=== PATIENT | female | born 1985 | race Caucasian/White ===

== ENCOUNTER 2017-05-01 08:53 | Emergency (ER) | payer BC, OTHER ==
--- NOTE | 2017-05-01 09:46 | EDM.PDOC ---
ED HPI GENERAL MEDICAL PROBLEM - General Chief Complaint: Gastrointestinal Problem Stated Complaint: STOMACH PAIN/SWELLING AND LEG SWELLING Time Seen by Provider: 05/01/17 09:06 Source of Information: Reports: Patient, Family (), RN Notes Reviewed History Limitations: Reports: No Limitations - History of Present Illness INITIAL COMMENTS - FREE TEXT/NARRATIVE: The patient states that she has had abdominal bloating and discomfort since November , following a cholecystectomy, and that it has been worse over the past 2-3 weeks. She has also been experiencing bilateral lower extremity edema for the past 2-3 weeks. She states that she has had bilateral flank pain for the past month or so. She has nausea if she doesn't eat, but no recent vomiting, constipation, or diarrhea. No dysuria, but she does feel that she has to urinate frequently, sometimes. No recent fever. No recent dyspnea or chest pain. The patient is visibly jaundiced, which the patient states she was unaware of, and the patient's states developed only today. The patient states that she quit drinking about one week ago, of 2-3 vodka and cranberry drinks per night. She denies the use of any drugs, with the exception of marijuana as a kid. The patient's PCP is Tori Almanza, from [place], but the patient states that she has not seen her, because she is stubborn. She states that the only reason that she is here today is because her and mother nagged her. Abdomen Pain Score (Numeric/FACES): 4 - Related Data Allergies Allergy/AdvReac Type Severity Reaction Status Date / Time No Known Allergies Allergy Verified 05/01/17 09:09 Home Meds: Home Meds . [No Known Home Meds] 05/01/17 [History] Past Medical History Dermatologic History: Reports: Psoriasis (untreated) - Past Surgical History GI Surgical History: Reports: Bariatric Procedure (Gastric bypass, 2013), Cholecystectomy (November 2016) Female Surgical History: Reports: Tubal Ligation (2010) Social & Family History - Tobacco Use Smoking Status *Q: Current Every Day Smoker Years of Tobacco use: 2 Packs/Tins Daily: 1 - Caffeine Use Caffeine Use: Reports: None - Alcohol Use Alcohol Use History: Yes Days Per Week of Alcohol Use: 7 Number of Drinks Per Day: 3 Total Drinks Per Week: 21 Date/Time of Last Drink Comment: Last = 04/23/2017 Alcohol Use Frequency: Daily - Recreational Drug Use Recreational Drug Use: Yes Drug Use in Last 12 Months: No Recreational Drug Type: Reports: Marijuana/Hashish (last as a teenager) - Living Situation & Occupation Living situation: Reports: , with Spouse, with Family (mother, carmelo, 4 kids) Occupation: Unemployed ED ROS GENERAL - Review of Systems Review Of Systems: ROS reveals no pertinent complaints other than HPI. Constitutional: Reports: No Symptoms HEENT: Reports: No Symptoms Respiratory: Reports: No Symptoms Cardiovascular: Reports: No Symptoms Endocrine: Reports: No Symptoms GI/Abdominal: Reports: No Symptoms : Reports: No Symptoms Musculoskeletal: Reports: No Symptoms Skin: Reports: No Symptoms Neurological: Reports: No Symptoms Psychiatric: Reports: No Symptoms Hematologic/Lymphatic: Reports: No Symptoms Immunologic: Reports: No Symptoms ED EXAM, GENERAL - Physical Exam Exam: See Below Exam Limited By: No Limitations General Appearance: Alert, WD/WN, No Apparent Distress Eye Exam: Bilateral Eye: Other (Scleral icterus) Ears: Normal External Exam, Hearing Grossly Normal Nose: Normal Inspection, No Blood Throat/Mouth: Normal Inspection, Normal Lips, Normal Teeth, Normal Gums, Normal Oropharynx, Normal Voice, No Airway Compromise Head: Atraumatic, Normocephalic Neck: Normal Inspection, Full Range of Motion Respiratory/Chest: No Respiratory Distress, Lungs Clear, Normal Breath Sounds, No Accessory Muscle Use Cardiovascular: Normal Peripheral Pulses, No Gallop, No JVD, No Murmur, No Rub, Tachycardia (regular) Peripheral Pulses: 3+: Radial (L), Radial (R) GI/Abdominal: Normal Bowel Sounds, Soft, No Organomegaly, No Abnormal Bruit, No Mass, Distended, Tender (mild, LUQ only Nontender elsewhere.), Other (No pitting edema of the abdominal wall) (Female) Exam: Deferred Rectal (Female) Exam: Deferred Back Exam: Normal Inspection, Full Range of Motion, NT Extremities: Normal Inspection, Normal Range of Motion, Normal Capillary Refill , Other (2+ bilateral pretibial pitting edema) Neurological: Alert, Oriented, Normal Cognition, No Motor/Sensory Deficits Psychiatric: Normal Affect Skin Exam: Warm, Dry, Intact, No Rash, Jaundice Course - Vital Signs Last Recorded V/S: Last Vital Signs Temp 36.3 C 05/01/17 09:05 Pulse 125 H 05/01/17 09:05 Resp 16 05/01/17 09:05 BP 133/62 05/01/17 09:05 Pulse Ox 97 05/01/17 09:05 - Orders/Labs/Meds Orders: Active Orders 24 hr Category Date Time Status Abdomen Pelvis w Cont [CT] Stat Exams 05/01/17 09:31 Taken Ang Chest [CT] Stat Exams 05/01/17 10:57 Taken Chest 2V [CR] Stat Exams 05/01/17 09:31 Taken CULTURE URINE [RM] Stat Lab 05/01/17 09:55 Received HEPATITIS PANEL, ACUTE [REF] Stat Lab 05/01/17 09:45 Received Sodium Chloride 0.9% [Normal Saline] 1,000 ml Med 05/01/17 11:00 Active IV ASDIRECTED Sodium Chloride 0.9% [Normal Saline] 100 ml Med 05/01/17 11:00 Active IV ASDIRECTED Sodium Chloride 0.9% [Saline Flush] Med 05/01/17 09:54 Active 10 ml FLUSH ONETIME PRN Medication Orders Sodium Chloride (Normal Saline) 1,000 mls @ 100 mls/hr IV ASDIRECTED STEFAN Last Admin: 05/01/17 12:18 Dose: 100 mls/hr Sodium Chloride (Normal Saline) 100 mls @ 80 mls/hr IV ASDIRECTED STEFAN Last Admin: 05/01/17 11:18 Dose: 80 mls/hr Sodium Chloride (Saline Flush) 10 ml FLUSH ONETIME PRN PRN Reason: IV FLUSH Last Admin: 05/01/17 11:19 Dose: 10 ml Labs: Laboratory Tests 05/01/17 05/01/17 05/01/17 Range/Units 09:45 09:45 09:45 WBC 14.41 H (3.98-10.04) K/mm3 RBC 3.08 L (3.98-5.22) M/mm3 Hgb 10.9 L (11.2-15.7) gm/L Hct 31.7 L (34.1-44.9) % MCV 102.9 H (79.4-94.8) fl MCH 35.4 H (25.6-32.2) pg MCHC 34.4 (32.2-35.5) g/dl RDW Std Deviation 64.3 H (36.4-46.3) fL Plt Count 81 L (182-369) K/mm3 MPV 10.9 (9.4-12.3) fl Neutrophils % (Manual) 79 H (40-60) % Band Neutrophils % 4 (0-10) % Lymphocytes % (Manual) 13 L (20-40) % Atypical Lymphs % 0 % Monocytes % (Manual) 4 (2-10) % Eosinophils % (Manual) 0 L (0.7-5.8) % Basophils % (Manual) 0 L (0.1-1.2) Platelet Estimate See note Anisocytosis 1+ slight Macrocytosis 1+ slight RBC Morph Comment Not Reportable PT 20.3 H (8.0-13.0) SECONDS INR 1.79 APTT 44 H (22-36) SECONDS D-Dimer, Quantitative 5.89 H (0.19-0.59) mg/L Sodium 131 L (136-145) mEq/L Potassium 3.7 (3.5-5.1) mEq/L Chloride 95 L (98-107) mEq/L Carbon Dioxide 24 (21-32) mEq/L Anion Gap 15.7 H (5-15) BUN 4 L (7-18) mg/dL Creatinine 0.6 (0.55-1.02) mg/dL Est Cr Clr Drug Dosing 115.16 mL/min Estimated GFR (MDRD) > 60 (>60) mL/min BUN/Creatinine Ratio 6.7 L (14-18) Glucose 79 (74-106) mg/dL Calcium 8.6 (8.5-10.1) mg/dL Magnesium 1.6 L (1.8-2.4) mg/dl Total Bilirubin 11.4 H (0.2-1.0) mg/dL Direct Bilirubin (0.0-0.2) mg/dl GGT 590 H (5-55) U/L AST 110 H (15-37) U/L ALT 15 (14-59) U/L Alkaline Phosphatase 250 H (46-116) U/L Lactate Dehydrogenase 223 (81-234) U/L NT-Pro-B Natriuret Pep 345 H (0-125) pg/mL Total Protein 6.7 (6.4-8.2) g/dl Albumin 2.1 L (3.4-5.0) g/dl Globulin 4.6 gm/dL Albumin/Globulin Ratio 0.5 L (1-2) Lipase 226 (73-393) U/L Urine Color (Yellow) Urine Appearance (Clear) Urine pH (5.0-8.0) Ur Specific [place] (1.005-1.030) Urine Protein (Negative) Urine Glucose (UA) (Negative) Urine Ketones (Negative) Urine Occult Blood (Negative) Urine Nitrite (Negative) Urine Bilirubin (Negative) Urine Urobilinogen (0.2-1.0) Ur Leukocyte Esterase (Negative) Urine RBC (0-5) /hpf Urine WBC (0-5) /hpf Ur Epithelial Cells (0-5) /hpf Urine Bacteria (FEW) /hpf Urine Mucus (FEW) /hpf Urine HCG, Qual (NEGATIVE) Urine Opiates Screen (NEGATIVE) Ur Buprenorphine Scrn (NEGATIVE) Ur Oxycodone Screen (NEGATIVE) Urine Methadone Screen (NEGATIVE) Ur Propoxyphene Screen (NEGATIVE) Ur Barbiturates Screen (NEGATIVE) Ur Tricyclics Screen (NEGATIVE) Ur Phencyclidine Scrn (NEGATIVE) Ur Amphetamine Screen (NEGATIVE) U Methamphetamines Scrn (NEGATIVE) U Benzodiazepines Scrn (NEGATIVE) U Cocaine Metab Screen (NEGATIVE) U Marijuana (THC) Screen (NEGATIVE) Hepatitis C Antibody (NEGATIVE) 05/01/17 05/01/17 05/01/17 Range/Units 09:45 09:45 09:55 WBC (3.98-10.04) K/mm3 RBC (3.98-5.22) M/mm3 Hgb (11.2-15.7) gm/L Hct (34.1-44.9) % MCV (79.4-94.8) fl MCH (25.6-32.2) pg MCHC (32.2-35.5) g/dl RDW Std Deviation (36.4-46.3) fL Plt Count (182-369) K/mm3 MPV (9.4-12.3) fl Neutrophils % (Manual) (40-60) % Band Neutrophils % (0-10) % Lymphocytes % (Manual) (20-40) % Atypical Lymphs % % Monocytes % (Manual) (2-10) % Eosinophils % (Manual) (0.7-5.8) % Basophils % (Manual) (0.1-1.2) Platelet Estimate Anisocytosis Macrocytosis RBC Morph Comment PT (8.0-13.0) SECONDS INR APTT (22-36) SECONDS D-Dimer, Quantitative (0.19-0.59) mg/L Sodium (136-145) mEq/L Potassium (3.5-5.1) mEq/L Chloride (98-107) mEq/L Carbon Dioxide (21-32) mEq/L Anion Gap (5-15) BUN (7-18) mg/dL Creatinine (0.55-1.02) mg/dL Est Cr Clr Drug Dosing mL/min Estimated GFR (MDRD) (>60) mL/min BUN/Creatinine Ratio (14-18) Glucose (74-106) mg/dL Calcium (8.5-10.1) mg/dL Magnesium (1.8-2.4) mg/dl Total Bilirubin (0.2-1.0) mg/dL Direct Bilirubin 8.50 H (0.0-0.2) mg/dl GGT (5-55) U/L AST (15-37) U/L ALT (14-59) U/L Alkaline Phosphatase (46-116) U/L Lactate Dehydrogenase (81-234) U/L NT-Pro-B Natriuret Pep (0-125) pg/mL Total Protein (6.4-8.2) g/dl Albumin (3.4-5.0) g/dl Globulin gm/dL Albumin/Globulin Ratio (1-2) Lipase (73-393) U/L Urine Color Yellow (Yellow) Urine Appearance Clear (Clear) Urine pH 6.5 (5.0-8.0) Ur Specific [place] 1.010 (1.005-1.030) Urine Protein Negative (Negative) Urine Glucose (UA) Negative (Negative) Urine Ketones Negative (Negative) Urine Occult Blood 2+ H (Negative) Urine Nitrite Negative (Negative) Urine Bilirubin 3+ H (Negative) Urine Urobilinogen 1.0 (0.2-1.0) Ur Leukocyte Esterase Negative (Negative) Urine RBC 5-10 H (0-5) /hpf Urine WBC 5-10 H (0-5) /hpf Ur Epithelial Cells 0-5 (0-5) /hpf Urine Bacteria Few (FEW) /hpf Urine Mucus Few (FEW) /hpf Urine HCG, Qual (NEGATIVE) Urine Opiates Screen (NEGATIVE) Ur Buprenorphine Scrn (NEGATIVE) Ur Oxycodone Screen (NEGATIVE) Urine Methadone Screen (NEGATIVE) Ur Propoxyphene Screen (NEGATIVE) Ur Barbiturates Screen (NEGATIVE) Ur Tricyclics Screen (NEGATIVE) Ur Phencyclidine Scrn (NEGATIVE) Ur Amphetamine Screen (NEGATIVE) U Methamphetamines Scrn (NEGATIVE) U Benzodiazepines Scrn (NEGATIVE) U Cocaine Metab Screen (NEGATIVE) U Marijuana (THC) Screen (NEGATIVE) Hepatitis C Antibody Negative (NEGATIVE) 05/01/17 05/01/17 Range/Units 09:55 09:55 WBC (3.98-10.04) K/mm3 RBC (3.98-5.22) M/mm3 Hgb (11.2-15.7) gm/L Hct (34.1-44.9) % MCV (79.4-94.8) fl MCH (25.6-32.2) pg MCHC (32.2-35.5) g/dl RDW Std Deviation (36.4-46.3) fL Plt Count (182-369) K/mm3 MPV (9.4-12.3) fl Neutrophils % (Manual) (40-60) % Band Neutrophils % (0-10) % Lymphocytes % (Manual) (20-40) % Atypical Lymphs % % Monocytes % (Manual) (2-10) % Eosinophils % (Manual) (0.7-5.8) % Basophils % (Manual) (0.1-1.2) Platelet Estimate Anisocytosis Macrocytosis RBC Morph Comment PT (8.0-13.0) SECONDS INR APTT (22-36) SECONDS D-Dimer, Quantitative (0.19-0.59) mg/L Sodium (136-145) mEq/L Potassium (3.5-5.1) mEq/L Chloride (98-107) mEq/L Carbon Dioxide (21-32) mEq/L Anion Gap (5-15) BUN (7-18) mg/dL Creatinine (0.55-1.02) mg/dL Est Cr Clr Drug Dosing mL/min Estimated GFR (MDRD) (>60) mL/min BUN/Creatinine Ratio (14-18) Glucose (74-106) mg/dL Calcium (8.5-10.1) mg/dL Magnesium (1.8-2.4) mg/dl Total Bilirubin (0.2-1.0) mg/dL Direct Bilirubin (0.0-0.2) mg/dl GGT (5-55) U/L AST (15-37) U/L ALT (14-59) U/L Alkaline Phosphatase (46-116) U/L Lactate Dehydrogenase (81-234) U/L NT-Pro-B Natriuret Pep (0-125) pg/mL Total Protein (6.4-8.2) g/dl Albumin (3.4-5.0) g/dl Globulin gm/dL Albumin/Globulin Ratio (1-2) Lipase (73-393) U/L Urine Color (Yellow) Urine Appearance (Clear) Urine pH (5.0-8.0) Ur Specific [place] (1.005-1.030) Urine Protein (Negative) Urine Glucose (UA) (Negative) Urine Ketones (Negative) Urine Occult Blood (Negative) Urine Nitrite (Negative) Urine Bilirubin (Negative) Urine Urobilinogen (0.2-1.0) Ur Leukocyte Esterase (Negative) Urine RBC (0-5) /hpf Urine WBC (0-5) /hpf Ur Epithelial Cells (0-5) /hpf Urine Bacteria (FEW) /hpf Urine Mucus (FEW) /hpf Urine HCG, Qual Negative (NEGATIVE) Urine Opiates Screen Negative (NEGATIVE) Ur Buprenorphine Scrn Negative (NEGATIVE) Ur Oxycodone Screen Negative (NEGATIVE) Urine Methadone Screen Negative (NEGATIVE) Ur Propoxyphene Screen Negative (NEGATIVE) Ur Barbiturates Screen Negative (NEGATIVE) Ur Tricyclics Screen Negative (NEGATIVE) Ur Phencyclidine Scrn Negative (NEGATIVE) Ur Amphetamine Screen Negative (NEGATIVE) U Methamphetamines Scrn Negative (NEGATIVE) U Benzodiazepines Scrn Negative (NEGATIVE) U Cocaine Metab Screen Negative (NEGATIVE) U Marijuana (THC) Screen Negative (NEGATIVE) Hepatitis C Antibody (NEGATIVE) Meds: Medications Generic Name Dose Route Start Last Admin Trade Name Freq PRN Reason Stop Dose Admin Sodium Chloride 1,000 mls @ 100 mls/hr 05/01/17 11:00 05/01/17 12:18 Normal Saline IV 100 mls/hr ASDIRECTED STEFAN Administration Sodium Chloride 100 mls @ 80 mls/hr 05/01/17 11:00 05/01/17 11:18 Normal Saline IV 80 mls/hr ASDIRECTED STEFAN Administration Sodium Chloride 10 ml 05/01/17 09:54 05/01/17 11:19 Saline Flush FLUSH 10 ml ONETIME PRN Administration IV FLUSH Discontinued Medications Generic Name Dose Route Start Last Admin Trade Name Ramoq PRN Reason Stop Dose Admin Diatrizoate Meglum/Diatrizoate Sod 120 ml 05/01/17 09:54 Gastrografin 37% PO 05/01/17 09:55 ONETIME ONE Iopamidol 150 ml 05/01/17 09:54 Isovue-300 (61%) IVPUSH 05/01/17 09:55 ONETIME ONE Iopamidol 100 ml 05/01/17 10:59 05/01/17 11:18 Isovue-370 (76%) IVPUSH 05/01/17 11:00 100 ml ONETIME ONE Administration - Re-Assessments/Exams Free Text/Narrative Re-Assessment/Exam: 05/01/17 11:16 The patient's urinalysis has 5-10 WBCs, although only a few bacteria. I do not clinically suspect a UTI, but I have ordered a urine culture. 05/01/17 11:32 Two-view chest radiograph appears to be grossly normal. Cardiac silhouette is within normal limits. No pulmonary vascular congestion. Increased lung markings are likely due to increased lung density, due to poor inspiration. No pleural effusions. No focal infiltrate. No pneumothorax. Formal read per the Radiologist pending. 05/01/17 12:29 CT angiogram of the chest is read by [facility] as "No acute findings." CT of the abdomen and pelvis with oral and IV contrast is read by [facility] as "Moderate ascites. Hepatic steatosis. Pancreatic tail lesion, recommend comparison with prior examinations or follow-up." 05/01/17 12:38 Test results discussed with the patient and her . 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 I am recommending that she be transferred to the care of a Business Development Manager or Cordage Sales Representative in [place]. The patient was initially reluctant, preferring to go there on her own this coming Saturday, however, I would not be able to arrange for an outpatient evaluation - she would have to do that on her own. The patient therefore agreed to transfer to [place], preferring [facility]. 05/01/17 13:[address] Cardoso, Hospitalist at [facility], at 12:59. He accepts the patient for transfer, and is okay with the patient going by private vehicle. Departure - Departure Time of Disposition: 13:05 Disposition: Home, Self-Care 01 Condition: Good Clinical Impression: Ascites, Jaundice, Lesion of pancreas - Discharge Information Additional Instructions: Go directly to [facility], to the East Patient Entrance, off [address] , North of the emergency room. Go to patient registration - they will be expecting you. - My Orders Last 24 Hours: My Active Orders 05/01/17 09:31 Abdomen Pelvis w Cont [CT] Stat Chest 2V [CR] Stat 05/01/17 09:45 HEPATITIS PANEL, ACUTE [REF] Stat 05/01/17 09:54 Sodium Chloride 0.9% [Saline Flush] 10 ml FLUSH ONETIME PRN 05/01/17 09:55 CULTURE URINE [RM] Stat 05/01/17 10:57 Ang Chest [CT] Stat 05/01/17 11:00 Sodium Chloride 0.9% [Normal Saline] 1,000 ml IV ASDIRECTED Sodium Chloride 0.9% [Normal Saline] 100 ml IV ASDIRECTED - Assessment/Plan Last 24 Hours: My Active Orders 05/01/17 09:31 Abdomen Pelvis w Cont [CT] Stat Chest 2V [CR] Stat 05/01/17 09:45 HEPATITIS PANEL, ACUTE [REF] Stat 05/01/17 09:54 Sodium Chloride 0.9% [Saline Flush] 10 ml FLUSH ONETIME PRN 05/01/17 09:55 CULTURE URINE [RM] Stat 05/01/17 10:57 Ang Chest [CT] Stat 05/01/17 11:00 Sodium Chloride 0.9% [Normal Saline] 1,000 ml IV ASDIRECTED Sodium Chloride 0.9% [Normal Saline] 100 ml IV ASDIRECTED
[2017-05-01] MEDS ORDERED: Sodium Chloride 0.9% 10 ML Syringe FLUSH PRN (09:54)
[2017-05-01] MEDS ORDERED: Diatrizoate Meglumine/Diatrizoate Sodium 37% 120 ML Bottle PO ONE (09:54)
[2017-05-01] MEDS ORDERED: Iopamidol 612 MG/ML 150 ML Bottle IVPUSH ONE (09:54)
[2017-05-01] MEDS ORDERED: Iopamidol 755 Mg/ML 100 ML Bottle IVPUSH ONE (10:59)
[2017-05-01] MEDS ORDERED: Sodium Chloride 0.9% 100 ML IV SCH (11:00)
[2017-05-01] MEDS ORDERED: Sodium Chloride 0.9% 1,000 ML IV SCH (11:00)
--- NOTE | 2017-05-01 15:20 | CR ---
Chest: Two views of the chest were obtained. Comparison: No prior chest x-ray, subsequent chest CT performed later on the same day is available. Heart size and mediastinum are within normal limits. Lungs are clear. Bony structures are unremarkable. Surgical clips are seen from prior cholecystectomy within the upper abdomen. Impression: 1. Nothing acute is seen. Diagnostic code #2
--- NOTE | 2017-05-01 15:20 | CT ---
CT abdomen and pelvis Technique: Multiple axial sections were obtained from above the dome of the diaphragm inferiorly through the pubic symphysis. Intravenous and oral contrast was utilized. Comparison: No prior abdominal x-ray. Findings: Visualized lung bases show nothing acute. Liver shows diffuse decreased density compatible with prominent fatty infiltration. Spleen is slightly enlarged at 13.9 cm. Liver is also mildly enlarged. Ascites is identified throughout the abdomen and pelvis. Previous surgery is noted within the stomach. Adrenal glands show no nodule. Pancreas appears within normal limits. Surgical clips are seen from prior cholecystectomy. Kidneys show symmetric contrast enhancement without hydronephrosis or mass. Aorta shows no aneurysmal dilatation. No retroperitoneal adenopathy or mesenteric abnormalities are seen. No pelvic mass or adenopathy is seen. Body wall edema is identified. Bone window settings were reviewed which show vacuum phenomenon and mild disc space narrowing at L5-S1. Impression: 1. Diffuse ascites throughout the abdomen and pelvis. 2. Severe fatty infiltration within the liver with mild hepatomegaly. 3. Mild splenomegaly is noted. 4. Other incidental findings. Diagnostic code #3 Agree with preliminary report issued by [employer] ([facility] preliminary report dictated on 05/01/17, 12:54 PM Central Time)
--- NOTE | 2017-05-01 15:25 | CT ---
CT chest Technique: Multiple axial sections through the chest were obtained. Intravenous contrast was utilized. Comparison: Previous chest x-ray performed earlier on the same day. Findings: Pulmonary arteries are well-opacified. No filling defects are seen to indicate pulmonary embolism. Mediastinum and hilar regions are within normal limits. No pericardial thickening is seen. Diffuse fatty infiltration is again seen within the liver. Lungs are clear. No pleural effusions are seen. Bone window settings were reviewed which appear within normal limits for the patient's age. Impression: 1. No findings of pulmonary embolism. Nothing acute is seen on CT study of the chest. Diagnostic code #2 I agree with preliminary report issued by [email or web address] ([facility] preliminary report dictated on 05/01/17, 12:53 PM Central Time)
== END 2017-05-01 15:48 | disposition home or self-care (01) ==
LOC: JD.ED 08:53
DX: R18.8 Other ascites (principal); R17 Unspecified jaundice; K86.89 Other specified diseases of pancreas; F17.210 Nicotine dependence, cigarettes, uncomplicated; Z90.49 Acquired absence of other specified parts of digestive tract
CPT/HCPCS: 36415; 71020; 71275; 74177; 80053; 80074; 80306; 81001; 81025; 82248; 82977; 83615; 83690; 83735; 83880; 85025; 85379; 85610; 85730; 86803; 87086; 96360; 96361; 99285; J7030; J7040; J7050; Q9963; Q9967; 99284